=== PATIENT | male | born 1985 | race Two or more races ===

== ENCOUNTER 2025-02-18 06:07 | Emergency (ER) | payer MEDICAID, OTHER ==
[~2025-02-18] VITALS: Ht 165.1 cm; Wt 72.6 kg
[2025-02-18 06:34] VITALS: BP 112/63; TEMP 98
[2025-02-18] MEDS ORDERED: ERYT3.5O9 EACHEYE (06:57)
[2025-02-18 07:40] VITALS: O2SAT 99
== END 2025-02-18 07:40 | disposition home or self-care (01) ==
LOC: ER 06:19
DX: H00.014 Hordeolum externum left upper eyelid (principal)